=== PATIENT | female | born 1955 | race African-American/Black ===

== ENCOUNTER 2017-12-23 20:26 | Emergency (ER) | payer BC ==
--- NOTE | 2017-12-23 20:32 | PDOC ---
Rapid Medical Evaluation Chief Complaint: Nausea/Vomiting Time Seen by Provider: 12/23/17 20:27 Medical Evaluation: 12/23/17 20:28 CC: " I feel like something is stuck in my esophagus" after eating steak. + epigastric pain PE: patient alert ox3. vomiting blood tinged liquid. Pmhx; history of breast CA, knee surgery. Plan: CBC, cmp. type and screen. EKG patient to the ER for further management of care. 12/23/17 20:33
[2017-12-23 20:33] VITALS: BP 140/90; PULSE 87; BMI 24.7
[2017-12-23 20:50] LABS: URINE APPEARANCE CLOUDY; URINE BILIRUBIN NEGATIVE (NEGATIVE); URINE BLOOD NEGATIVE (NEGATIVE); URINE COLOR YELLOW; URINE GLUCOSE (UA) NEGATIVE (NEGATIVE); URINE KETONE 1+ (NEGATIVE); URINE LEUK ESTERASE TRACE (NEGATIVE); URINE NITRITE NEGATIVE (NEGATIVE); URINE UROBILINOGEN NEGATIVE mg/dL (0.2-1.0)
[2017-12-23 20:51] LABS: BASO % 0.4 % (0-2.0); EOS % 0.3 % (0-4.5); HEMATOCRIT 42.8 % (32.4-45.2); LYMPH % 15.4 % (8-40); MCH 29.9 pg (25.7-33.7); MCHC 32.7 g/dl (32.0-36.0); MEAN CELL VOLUME 91.4 fl (80-96); MEAN PLT VOLUME 8.1 fl (7.5-11.1); MONO % 5.7 % (3.8-10.2); NEUT % 78.2 % (42.8-82.8); PLATELET COUNT 425 K/MM3 (134-434); RBC 4.68 M/mm3 (3.60-5.2); RDW 13.4 % (11.6-15.6); WHITE BLOOD COUNT 11.2 K/mm3 (4.0-10.0)
[2017-12-23 20:52] LABS: URINE PROTEIN 1+ (NEGATIVE)
[2017-12-23 20:57] LABS: EPI CELLS RARE /HPF (FEW); URINE BACTERIA RARE /hpf (NONE SEEN); URINE HYALINE CAST 1 /lpf; URINE MUCUS MANY
[2017-12-23] MEDS ORDERED: SODIUM CHLORIDE 1,000 ML IV STA (21:03)
[2017-12-23] MEDS ORDERED: ONDANSETRON 4 MG/2 ML VIAL IVPUSH ONE (21:03)
[2017-12-23] MEDS ORDERED: PANTOPRAZOLE SODIUM 40 MG VIAL IVPUSH ONE (21:04)
--- NOTE | 2017-12-23 21:09 | PDOC ---
History of Present Illness - General History Source: Patient, Family Exam Limitations: No Limitations - History of Present Illness Initial Comments: 12/23/17 21:10 The patient is a 62 year old female presenting with her daughter, with a significant past medical history of breast CA s/p lumpectomy, who presents to the emergency department with abdominal pain, mid back pain, nausea and vomiting since 2:30pm today. She reports that her pain is epigastric, ranging from mild to moderate, without radiation or modifying factors. She reports multiple emesis episodes, non bloody and non bilious. The patient denies chest pain, shortness of breath, headache and dizziness. Denies fever, chills, diarrhea and constipation. Denies dysuria, frequency, urgency and hematuria. Allergies: None Past surgical history: Lumpectomy Social history: No alcohol, tobacco or drug use reported <Danielito Hylton - Last Filed: 12/23/17 21:09> <Sil Hatch - Last Filed: 12/24/17 01:56> - General Chief Complaint: Choking Sensation Stated Complaint: STOMACH PAIN Time Seen by Provider: 12/23/17 20:27 Past History <Danielito Hylton - Last Filed: 12/23/17 21:09> - Past Medical History Cancer: Yes (breast) COPD: No - Suicide/Smoking/Psychosocial Hx Smoking History: Never smoked <Sil Hatch - Last Filed: 12/24/17 01:56> - Past Medical History Allergies/Adverse Reactions: Allergies Allergy/AdvReac Type Severity Reaction Status Date / Time No Known Allergies Allergy Verified 12/23/17 20:28 Home Medications: Ambulatory Orders Pantoprazole Sodium [Protonix -] 20 mg PO DAILY #14 tablet.ec 12/24/17 Review of Systems - Review of Systems Able to Perform ROS?: Yes Comments:: 12/23/17 21:10 GENERAL/CONSTITUTIONAL: No fever or chills. No weakness. HEAD, EYES, EARS, NOSE AND THROAT: No change in vision. No ear pain or discharge. No sore throat.- CARDIOVASCULAR: No chest pain or shortness of breath RESPIRATORY: No cough, wheezing, or hemoptysis. GASTROINTESTINAL: (+) Abdominal pain, nausea, vomiting. No diarrhea or constipation. GENITOURINARY: No dysuria, frequency, or change in urination. MUSCULOSKELETAL: (+) Mid to low back pain. No joint or muscle swelling or pain. No neck pain. SKIN: No rash NEUROLOGIC: No headache, vertigo, loss of consciousness, or change in strength/ sensation. ENDOCRINE: No increased thirst. No abnormal weight change HEMATOLOGIC/LYMPHATIC: No anemia, easy bleeding, or history of blood clots. ALLERGIC/IMMUNOLOGIC: No hives or skin allergy. <Danielito Hylton - Last Filed: 12/23/17 21:09> *Physical Exam - Vital Signs Last Vital Signs Temp Pulse Resp BP Pulse Ox 87 26 H 140/90 100 12/23/17 20:28 12/23/17 20:28 12/23/17 20:28 12/23/17 20:28 - Physical Exam Comments: 12/23/17 21:10 GENERAL: Awake, alert, and fully oriented, in no acute distress HEAD: No signs of trauma, normocephalic, atraumatic EYES: PERRLA, EOMI, sclera anicteric, conjunctiva clear ENT: Auricles normal inspection, hearing grossly normal, nares patent, oropharynx clear without exudates. Moist mucosa NECK: Normal ROM, supple, no lymphadenopathy, JVD, or masses LUNGS: No distress, speaks full sentences, clear to auscultation bilaterally HEART: Regular rate and rhythm, normal S1 and S2, no murmurs, rubs or gallops, peripheral pulses normal and equal bilaterally. ABDOMEN: Soft, nontender, normoactive bowel sounds. No guarding, no rebound. No masses EXTREMITIES : Normal inspection, Normal range of motion, no edema. No clubbing or cyanosis. NEUROLOGICAL: Cranial nerves II through XII grossly intact. Normal speech, normal gait, no focal sensorimotor deficits SKIN: Warm, Dry, normal turgor, no rashes or lesions noted <Danielito Hylton - Last Filed: 12/23/17 21:09> - Vital Signs Last Vital Signs Temp Pulse Resp BP Pulse Ox 87 26 H 140/90 100 12/23/17 20:28 12/23/17 20:28 12/23/17 20:28 12/23/17 20:28 <Sil Hatch - Last Filed: 12/24/17 01:56> ED Treatment Course - LABORATORY CBC & Chemistry Diagram: 12/23/17 20:41 12/23/17 20:41 - ADDITIONAL ORDERS Additional order review: Laboratory Results 12/23/17 20:42 Urine Color Yellow Urine Appearance Cloudy Urine pH 7.0 Ur Specific [place] 1.025 Urine Protein 1+ H Urine Glucose (UA) Negative Urine Ketones 1+ H Urine Blood Negative Urine Nitrite Negative Urine Bilirubin Negative Urine Urobilinogen Negative Ur Leukocyte Esterase Trace Urine WBC (Auto) 7 Urine RBC (Auto) 2 Ur Epithelial Cells Rare Urine Bacteria Rare Hyaline Casts 1 Urine Mucus Many 12/23/17 20:41 RBC 4.68 MCV 91.4 MCHC 32.7 RDW 13.4 MPV 8.1 Neutrophils % 78.2 Lymphocytes % 15.4 Monocytes % 5.7 Eosinophils % 0.3 Basophils % 0.4 <Danielito Hylton - Last Filed: 12/23/17 21:09> - LABORATORY CBC & Chemistry Diagram: 12/23/17 20:41 12/23/17 20:41 - ADDITIONAL ORDERS Additional order review: Laboratory Results 12/23/17 20:42 Urine Color Yellow Urine Appearance Cloudy Urine pH 7.0 Ur Specific [place] 1.025 Urine Protein 1+ H Urine Glucose (UA) Negative Urine Ketones 1+ H Urine Blood Negative Urine Nitrite Negative Urine Bilirubin Negative Urine Urobilinogen Negative Ur Leukocyte Esterase Trace Urine WBC (Auto) 7 Urine RBC (Auto) 2 Ur Epithelial Cells Rare Urine Bacteria Rare Hyaline Casts 1 Urine Mucus Many 12/23/17 20:41 RBC 4.68 MCV 91.4 MCHC 32.7 RDW 13.4 MPV 8.1 Neutrophils % 78.2 Lymphocytes % 15.4 Monocytes % 5.7 Eosinophils % 0.3 Basophils % 0.4 <Sil Hatch - Last Filed: 12/24/17 01:56> *DC/Admit/Observation/Transfer - Attestations Scribe Attestion: 12/23/17 21:10 Documentation prepared by Danielito Hylton, acting as senior medical transcriptionist for Sil Hatch MD <Danielito Hylton - Last Filed: 12/23/17 21:09> <Sil Hatch - Last Filed: 12/24/17 01:56> Diagnosis at time of Disposition: Epigastric abdominal pain, Sensation of foreign body in esophagus Vomiting Qualifiers: Vomiting type: unspecified Vomiting Intractability: non-intractable Nausea presence: with nausea Qualified Code(s): R11.2 - Nausea with vomiting, unspecified - Discharge Dispostion Disposition: HOME Condition at time of disposition: Stable - Referrals Referrals: ON STAFF,NOT [Primary Care Provider] - David Liriano MD [Staff Physician] - - Patient Instructions Printed Discharge Instructions: DI for Vomiting -- Adult, DI for Epigastric Pain, DI for Esophageal Dysphagia Additional Instructions: please follow up with a rollway worker please take protonix - Post Discharge Activity Forms/Work/School Notes: Back to Work
[2017-12-23] MEDS ORDERED: HYDROmorphone HCL CARPU-JECT 1 MG/1 ML DISP.SYRIN IVPUSH ONE (21:10)
[2017-12-23 21:14] LABS: ALBUMIN 4.6 g/dl (3.4-5.0); ALK PHOS 98 U/L (45-117); ANION GAP 8 (8-16); BILIRUBIN,TOTAL 0.5 mg/dL (0.2-1.0); BLOOD UREA NITROGEN 15 mg/dL (7-18); CALCIUM 9.7 mg/dL (8.5-10.1); CHLORIDE 109 mmol/L (98-107); CO2 29 mmol/L (21-32); CREATININE 0.9 mg/dL (0.55-1.02); GLUCOSE,RANDOM 102 mg/dL (74-106); LIPASE 170 U/L (73-393); POTASSIUM 3.5 mmol/L (3.5-5.1); SGOT/AST 22 U/L (15-37); SGPT/ALT 36 U/L (12-78); SODIUM 146 mmol/L (136-145); TOT PROT 8.7 g/dl (6.4-8.2)
[2017-12-23] MEDS ORDERED: HYDROmorphone HCl/Pf 2 MG/ML VIAL - FOR OR PYXIS USE ONE (21:22)
[2017-12-23] MEDS ORDERED: PANTOPRAZOLE SODIUM 40 MG VIAL ONE (21:22)
[2017-12-23] MEDS ORDERED: ONDANSETRON 4 MG/2 ML VIAL ONE (21:22)
--- NOTE | 2017-12-24 11:28 | EKG ---
Test Reason : Blood Pressure : / mmHG Vent. Rate : 087 BPM Atrial Rate : 087 BPM P-R Int : 232 ms QRS Dur : 090 ms QT Int : 360 ms P-R-T Axes : 058 -14 059 degrees QTc Int : 433 ms SINUS RHYTHM WITH 1ST DEGREE A-V BLOCK T WAVE ABNORMALITY, CONSIDER LATERAL ISCHEMIA ABNORMAL ECG NO PREVIOUS ECGS AVAILABLE Confirmed by MD Quinteros Daniel ([id number]) on 12/24/2017 11:28:36 AM Referred By: Confirmed By:Williams Quinteros MD
== END 2017-12-24 02:01 | disposition home or self-care (01) ==
LOC: JER 20:26
PROC: 3E033NZ Introduction of Analgesics, Hypnotics, Sedatives into Peripheral Vein, Percutaneous Approach (ICD-10-PCS; principal; 2017-12-23)
PROC: 3E033GC Introduction of Other Therapeutic Substance into Peripheral Vein, Percutaneous Approach (ICD-10-PCS; 2017-12-23)
PROC: 3E033GC Introduction of Other Therapeutic Substance into Peripheral Vein, Percutaneous Approach (ICD-10-PCS; 2017-12-23)
DX: R13.19 Other dysphagia (principal); K22.8 Other specified diseases of esophagus; R11.2 Nausea with vomiting, unspecified; Z85.3 Personal history of malignant neoplasm of breast
CPT/HCPCS: 36415; 71046-TC-FY; 76705-TC; 80053; 81003; 81015; 82550; 82553; 83690; 84484; 85025; 93005; 93010; 99283-25